=== PATIENT | female | born 1945 | race Hispanic/Latino ===

== ENCOUNTER 2018-10-31 10:34 | Emergency (ER) | payer OTHER ==
[2018-10-31] MEDS ORDERED: MECLIZINE HCL 12.5 MG TAB ONE (11:40)
[2018-10-31] MEDS ORDERED: NA CHLORIDE 0.9% 500 ML ONE (11:40)
[2018-10-31] MEDS ORDERED: ONDANSETRON 4 MG/2 ML VIAL ONE (11:40)
[2018-10-31 11:51] LABS: Absolute Lymphocytes (CBC) 0.9 K/uL (0.7-4.9); Basophils % 0.6 % (0-1.3); Hematocrit 46.8 % (36.0-45.0); Lymphocytes % 9.7 % (15.3-44.8); MPV 12.1 fL (7.6-11.3); RBC Red Blood Cell Count 5.37 M/uL (3.86-4.86)
--- NOTE | 2018-10-31 11:51 | RAD REPORT ---
EXAM DESCRIPTION: CT - Head Brain Wo Cont - 10/31/2018 11:45 am CLINICAL HISTORY: Syncope, fall, head injury COMPARISON: None. TECHNIQUE: Axial 5 mm thick images of the head were obtained without IV contrast. All CT scans are performed using dose optimization technique as appropriate and may include automated exposure control or mA/KV adjustment according to patient size. FINDINGS: No intracranial hemorrhage, mass, edema or shift of mid-line structures. No acute cortical based infarction. No cortical edema or sulcal effacement. Patient has little if any atrophy. Ventric les are normal. Chronic ischemic changes are minimal. Ventricles are normal. Mastoid air cells and visualized portions of the paranasal sinuses are clear. No acute bony findings. Asymmetry is created by head tilt. IMPRESSION: No acute intracranial finding. Chronic ischemic changes minimal with no significant atro phy.
[2018-10-31 11:55] LABS: Protime INR 1.07
[2018-10-31 12:11] LABS: ALT/SGPT 21 U/L (12-78); AST/SGOT 18 U/L (15-37); Alkaline Phosphatase 100 U/L (45-117); BUN Blood Urea Nitrogen 21 mg/dL (7-18); Bicarbonate 30 mmol/L (21-32); Bilirubin Direct 0.2 mg/dL (0-0.2); Bilirubin Total 0.7 mg/dL (0.2-1.0); Glucose Level 118 mg/dL (74-106); Magnesium 2.1 mg/dL (1.8-2.4); NT PRO-BNP 498 pg/mL (<125); Potassium 4.5 mmol/L (3.5-5.1); Protein, Total 8.3 g/dL (6.4-8.2); Sodium Level 139 mmol/L (136-145); Troponin (Emerg Dept Use Only) < 0.02 ng/mL (0.0-0.045)
--- NOTE | 2018-10-31 13:03 | RAD REPORT ---
EXAM DESCRIPTION: RAD - Chest Single View - 10/31/2018 11:52 am CLINICAL HISTORY: Cough, shortness of breath COMPARISON: None. TECHNIQUE: AP portable chest image was obtained 1148 hours . FINDINGS: Lungs are clear. Heart and vasculature are normal. No measurable pleural effusion and no p neumothorax. No acute bony abnormality seen. No acute aortic findings suspected. IMPRESSION: No acute cardiopulmonary process.
--- NOTE | 2018-10-31 13:03 | RAD REPORT ---
EXAM DESCRIPTION: US - CP - 10/31/2018 12:04 pm CLINICAL HISTORY: Dizziness, syncope COMPARISON: None. TECHNIQUE: Real-time sonographic evaluation of both carotid systems was performed. Stover scale and Do ppler interrogation were performed with waveform tracing bilaterally. FINDINGS: Normal high resistance waveforms are noted in both external carotid arteries. The common c arotid arteries and internal carotid arteries show normal low resistance waveforms. Mild right bulb plaquing changes are present without significant luminal narrowing. Peak systolic and end diastolic velocity values and the ICA/CCA ratios are in the non-hemodynamically significant rang e. Antegrade flow seen in both vertebral arteries. Velocity values and ratios were recorded and are retained in the patient's imaging records. IMPRESSION: No significant atherosclerotic changes noted. No evidence of a hemodynamically significant stenosis.
--- NOTE | 2018-10-31 13:11 | ER ---
Nurse's Notes [facility] Name: Elinor Bae Age: 73 yrs Sex: Female : 1945 Arrival Date: 10/31/2018 Time: 10:35 Bed 5 Private MD: Chuy Gusman Diagnosis: Dizziness and giddiness;Vertiginous syndromes in diseases classified elsewhere, unspecified ear;Type 2 diabetes mellitus;Urinary tract infection, site not specified;Unspecified kidney failure-insufficency Presentation: 10/31 11:12 Presenting complaint: Patient states: this morning was watering plants and had a dizzy iw spell that lasted approx 1 minute, it made her fall to the ground, fell on bottom, denies injury, states dizziness has almost completely resolved now, denies headache, denies chest pain or SOB, denies n/v/d, denies weakness in extremities. Transition of care: patient was not received from another setting of care. Onset of symptoms was October 31, 2018. Risk Assessment: Do you want to hurt yourself or someone else? Patient reports no desire to harm self or others. Initial Sepsis Screen: Does the patient meet any 2 criteria? No. Patient's initial sepsis screen is negative. Does the patient have a suspected source of infection? No. Patient's initial sepsis screen is negative. Care prior to arrival: None. 11:12 Method Of Arrival: Ambulatory iw 11:12 Acuity: JOSE ROBERTO 3 iw Historical: - Allergies: 11:17 No Known Allergies; iw - Home Meds: 11:17 Vitamin D3 oral oral daily [Active]; Atenolol Oral [Active]; losartan oral oral iw [Active]; Glimepiride Oral [Active]; gabapentin oral oral [Active]; - PMHx: 11:17 Hypertension; neuropathy; Diabetes - NIDDM; Lupus; iw - PSHx: 11:17 ; iw - Immunization history:: Adult Immunizations up to date. - Social history:: Smoking status: Patient/guardian denies using tobacco. - Ebola Screening: : Patient negative for fever greater than or equal to 101.5 degrees Fahrenheit, and additional compatible Ebola Virus Disease symptoms Patient denies exposure to infectious person Patient denies travel to an Ebola-affected area in the 21 days before illness onset No symptoms or risks identified at this time. - Family history:: not pertinent. Screenin:20 Abuse screen: Denies threats or abuse. Nutritional screening: No deficits noted. aa5 Tuberculosis screening: No symptoms or risk factors identified. Fall Risk None identified. Assessment: 11:20 General: Appears comfortable, Behavior is calm, cooperative. Pain: Denies pain. Neuro: aa5 Level of Consciousness is awake, alert, obeys commands, Oriented to person, place, time, situation, Mathematical Engineering Technician are equal bilaterally Moves all extremities. Gait is steady, Speech is normal, Facial symmetry appears normal, Pupils are PERRLA, Reports dizziness has resolved. . Cardiovascular: Heart tones S1 S2 present Rhythm is regular. Respiratory: Airway is patent Respiratory effort is even, unlabored, Respiratory pattern is regular, symmetrical, Breath sounds are clear bilaterally. GI: Abdomen is round Bowel sounds present X 4 quads. Abd is soft and non tender X 4 quads. Reports nausea, Patient currently denies diarrhea, vomiting. : No signs and/or symptoms were reported regarding the genitourinary system. EENT: No signs and/or symptoms were reported regarding the EENT system. Derm: Skin is pink, warm \T\ dry. Musculoskeletal: Range of motion: intact in all extremities. 11:40 Reassessment: Pt at CT, will administer medications when pt returns. . aa5 12:03 Reassessment: Patient is alert, oriented x 3, equal unlabored respirations, skin aa5 warm/dry/pink. Pt back from CT . 13:00 Reassessment: Patient is alert, oriented x 3, equal unlabored respirations, skin aa5 warm/dry/pink. Patient denies pain at this time. Denies dizziness. Pt assisted to restroom with steady gait noted, urine specimen collected. . 14:11 Reassessment: Patient is alert, oriented x 3, equal unlabored respirations, skin aa5 warm/dry/pink. Patient denies pain at this time. Vital Signs: 11:17 BP 141 / 89; Pulse 67; Resp 16 S; Temp 97.9(TE); Pulse Ox 99% on R/A; Weight 88 kg; iw Height 5 ft. 3 in. (160.02 cm); Pain 0/10; 13:00 BP 139 / 84; Pulse 62; Resp 18 S; Pulse Ox 100% on R/A; Pain 0/10; aa5 14:00 BP 106 / 67 Supine; Pulse 72; aa5 14:02 BP 123 / 56 Sitting; Pulse 73; aa5 14:04 BP 115 / 45 Standing; Pulse 61; Resp 18 S; Temp 98.0(TE); Pulse Ox 98% on R/A; Pain aa5 0/10; 11:17 Body Mass Index 34.37 (88.00 kg, 160.02 cm) iw 14:04 Dr. Canchola notified of orthostatics. aa5 NIH Stroke Scale Scores: 11:29 NIHSS Score: 0 [facility] ED Course: 10:35 Patient arrived in ED. ag5 10:35 Chuy Gusman MD is Private Physician. ag5 10:58 Jose Manuel Canchola MD is Attending Physician. zaid 11:02 Carmen Contreras, RN is Primary Nurse. aa5 11:14 Triage completed. iw 11:17 Arm band placed on. iw 11:20 Patient has correct armband on for positive identification. Bed in low position. Call aa5 light in reach. Side rails up X2. Adult w/ patient. 11:20 monitor tech on. Pulse ox on. NIBP on. aa5 11:35 Initial lab(s) drawn, by la, sent to lab. Inserted saline lock: 20 gauge in right aa5 antecubital area, using aseptic technique. Blood collected. 11:45 CT completed. Patient tolerated procedure well. Patient moved back from CT. Patient bq moved to radiology. 11:46 CT Head Brain wo Cont In Process Unspecified. EDMS 11:51 X-ray completed. Patient tolerated procedure well. Patient moved back from radiology. mh1 11:55 XRAY Chest (1 view) In Process Unspecified. EDMS 12:03 Ultrasound completed. Patient tolerated well. sg3 12:04 US Carotid Artery Bilateral In Process Unspecified. EDMS 13:10 Chuy Gusman MD is Referral Physician. zaid 14:11 No provider procedures requiring assistance completed. IV discontinued, intact, aa5 bleeding controlled, No redness/swelling at site. Pressure dressing applied. Administered Medications: 12:04 Drug: NS 0.9% 500 ml Route: IV; Rate: bolus; Site: right antecubital; aa5 12:40 Follow up: IV Status: Completed infusion; IV Intake: 500ml aa5 12:04 Drug: Meclizine 50 mg Route: PO; aa5 13:20 Follow up: Response: No adverse reaction aa5 12:04 Drug: Zofran 4 mg Route: IVP; Site: right antecubital; aa5 12:10 Follow up: Response: No adverse reaction aa5 13:19 Drug: Aspirin Chewable Tablet 162 mg Route: PO; aa5 14:09 Follow up: Response: No adverse reaction aa5 13:20 Drug: Rocephin 1 grams Route: IV; Rate: per protocol; Site: right antecubital; aa5 13:30 Follow up: Response: No adverse reaction aa5 Intake: 12:40 IV: 500ml; Total: 500ml. aa5 Outcome: 13:10 Discharge ordered by . zaid 14:11 Discharged to home ambulatory, with family. aa5 14:11 Condition: stable 14:11 Discharge instructions given to patient, Instructed on discharge instructions, follow up and referral plans. medication usage, Demonstrated understanding of instructions, follow-up care, medications, Prescriptions given X 3. 14:13 Patient left the ED. aa5 NIH Stroke Scale - NIH Stroke Score Date: 10/31/2018 Time: 11:29 Total Score = 0 1a. Level of Consciousness (LOC) - 0(Alert) 1b. Level of Consciousness (LOC) (Year \T\ Age) - 0(Both) 1c. LOC Commands (Open \T\ Closes Eyes/Central Office Operator Supervisor) - 0(Both) 2. Best Gaze (Lateral Gaze Paresis) - 0(Normal) 3. Visual Field Loss - 0(No visual loss) 4. Facial Palsy - 0(Normal) 5a. Left Arm: Motor (10-second hold) - 0(No drift) 5b. Right Arm: Motor (10-second hold) - 0(No drift) 6a. Left Leg: Motor (5-second hold - always test supine) - 0(No drift) 6b. Right Leg: Motor (5-second hold - always test supine) - 0(No drift) 7. Limb Ataxia (finger/nose \T\ heel/aguirre - test with eyes open) - 0(Absent) 8. Sensory Loss (pinprick arms/legs/face) - 0(Normal) 9. Best Language: Aphasia (description/naming/reading) - 0(No aphasia) 10. Dysarthria (speech clarity - read or repeat words) - 0(Normal) 11. Extinction and Inattention (visual/tactile/auditory/spatial/personal) - 0(No abnormality) Initials: zaid Signatures: Dispatcher [employer] Jose Manuel Asif MD MD cha Harvey, Martha 1 Aida Rodriguez Irene RN RN iw Carmen Contreras RN RN aa5 Fina Negrete 3 Marisol Newell 5
--- NOTE | 2018-10-31 13:11 | EDPHYS ---
Physician Documentation [facility] Name: Elinor Bae Age: 73 yrs Sex: Female : 1945 Arrival Date: 10/31/2018 Time: 10:35 Bed 5 Private MD: Chuy Gusman ED Physician Jose Manuel Canchola HPI: 10/31 11:29 This 73 yrs old Female presents to ER via Ambulatory with complaints of zaid Dizziness. 11:29 The patient presents with dizziness, generalized weakness, lightheadedness, feeling off zaid balance. Onset: The symptoms/episode began/occurred just prior to arrival. Context: occurred at home, outdoors, occurred while the patient was working. Modifying factors: The symptoms are alleviated by nothing. Associated signs and symptoms: The patient has no apparent associated signs or symptoms. Severity of symptoms: At their worst the symptoms were mild moderate in the emergency department the symptoms have improved mildly. Patient's baseline: Neuro: alert and fully oriented. The patient has not experienced similar symptoms in the past. Historical: - Allergies: 11:17 No Known Allergies; iw - Home Meds: 11:17 Vitamin D3 oral oral daily [Active]; Atenolol Oral [Active]; losartan oral oral iw [Active]; Glimepiride Oral [Active]; gabapentin oral oral [Active]; - PMHx: 11:17 Hypertension; neuropathy; Diabetes - NIDDM; Lupus; iw - PSHx: 11:17 ; iw - Immunization history:: Adult Immunizations up to date. - Social history:: Smoking status: Patient/guardian denies using tobacco. - Ebola Screening: : Patient negative for fever greater than or equal to 101.5 degrees Fahrenheit, and additional compatible Ebola Virus Disease symptoms Patient denies exposure to infectious person Patient denies travel to an Ebola-affected area in the 21 days before illness onset No symptoms or risks identified at this time. - Family history:: not pertinent. ROS: 11:29 Constitutional: Negative for fever, chills, and weight loss, Eyes: Negative for injury, zaid pain, redness, and discharge, ENT: Negative for injury, pain, and discharge, Neck: Negative for injury, pain, and swelling, Cardiovascular: Negative for chest pain, palpitations, and edema, Respiratory: Negative for shortness of breath, cough, wheezing, and pleuritic chest pain, Abdomen/GI: Negative for abdominal pain, nausea, vomiting, diarrhea, and constipation, Back: Negative for injury and pain, : Negative for injury, bleeding, discharge, and swelling, MS/Extremity: Negative for injury and deformity, Skin: Negative for injury, rash, and discoloration, Allergy/Immunology: Negative for hives, rash, and allergies, Endocrine: Negative for neck swelling, polydipsia, polyuria, polyphagia, and marked weight changes, Hematologic/Lymphatic: Negative for swollen nodes, abnormal bleeding, and unusual bruising. 11:29 Neuro: Positive for dizziness. Exam: 11:29 Constitutional: This is a well developed, well nourished patient who is awake, alert, zaid and in no acute distress. Head/Face: Normocephalic, atraumatic. Eyes: Pupils equal round and reactive to light, extra-ocular motions intact. Lids and lashes normal. Conjunctiva and sclera are non-icteric and not injected. Cornea within normal limits. Periorbital areas with no swelling, redness, or edema. ENT: Nares patent. No nasal discharge, no septal abnormalities noted. Tympanic membranes are normal and external auditory canals are clear. Oropharynx with no redness, swelling, or masses, exudates, or evidence of obstruction, uvula midline. Mucous membranes moist. Neck: Trachea midline, no thyromegaly or masses palpated, and no cervical lymphadenopathy. Supple, full range of motion without nuchal rigidity, or vertebral point tenderness. No Meningismus. Chest/axilla: Normal chest wall appearance and motion. Nontender with no deformity. No lesions are appreciated. Cardiovascular: Regular rate and rhythm with a normal S1 and S2. No gallops, murmurs, or rubs. Normal PMI, no JVD. No pulse deficits. Respiratory: Lungs have equal breath sounds bilaterally, clear to auscultation and percussion. No rales, rhonchi or wheezes noted. No increased work of breathing, no retractions or nasal flaring. Abdomen/GI: Soft, non-tender, with normal bowel sounds. No distension or tympany. No guarding or rebound. No evidence of tenderness throughout. Back: No spinal tenderness. No costovertebral tenderness. Full range of motion. Female : Normal external genitalia. Skin: Warm, dry with normal turgor. Normal color with no rashes, no lesions, and no evidence of cellulitis. MS/ Extremity: Pulses equal, no cyanosis. Neurovascular intact. Full, normal range of motion. Neuro: Awake and alert, GCS 15, oriented to person, place, time, and situation. Cranial nerves II-XII grossly intact. Motor strength 5/5 in all extremities. Sensory grossly intact. Cerebellar exam normal. Normal gait. Psych: Awake, alert, with orientation to person, place and time. Behavior, mood, and affect are within normal limits. 12:32 Musculoskeletal/extremity: DVT Exam: No signs of deep vein thrombosis. no pain, no zaid swelling, no tenderness, negative Homans' sign noted on exam, no appreciated bluish discoloration, no erythema, no increased warmth. Vital Signs: 11:17 BP 141 / 89; Pulse 67; Resp 16 S; Temp 97.9(TE); Pulse Ox 99% on R/A; Weight 88 kg; iw Height 5 ft. 3 in. (160.02 cm); Pain 0/10; 13:00 BP 139 / 84; Pulse 62; Resp 18 S; Pulse Ox 100% on R/A; Pain 0/10; aa5 14:00 BP 106 / 67 Supine; Pulse 72; aa5 14:02 BP 123 / 56 Sitting; Pulse 73; aa5 14:04 BP 115 / 45 Standing; Pulse 61; Resp 18 S; Temp 98.0(TE); Pulse Ox 98% on R/A; Pain aa5 0/10; 11:17 Body Mass Index 34.37 (88.00 kg, 160.02 cm) iw 14:04 Dr. Canchola notified of orthostatics. aa5 NIH Stroke Scale Scores: 11:29 NIHSS Score: 0 zaid MDM: 10:58 Patient medically screened. [facility] 12:32 Data reviewed: vital signs, nurses notes, lab test result(s), EKG, radiologic studies, [facility] CT scan, plain films. 10/31 11:28 Order name: Basic Metabolic Panel [facility] 10/31 11:28 Order name: CBC with Diff [facility] 10/31 11:28 Order name: LFT's; Complete Time: 12:31 [facility] 10/31 11:28 Order name: Magnesium; Complete Time: 12:31 [facility] 10/31 11:28 Order name: NT PRO-BNP; Complete Time: 12:31 [facility] 10/31 11:28 Order name: PT-INR; Complete Time: 12:31 [facility] 10/31 11:28 Order name: Troponin (emerg Dept Use Only); Complete Time: 12:31 [facility] 10/31 11:28 Order name: XRAY Chest (1 view); Complete Time: 13:07 [facility] 10/31 11:28 Order name: CT Head Brain wo Cont; Complete Time: 12:05 [facility] 10/31 11:28 Order name: US Carotid Artery Bilateral; Complete Time: 13:07 [facility] 10/31 11:28 Order name: Urine Culture [facility] 10/31 11:32 Order name: Basic Metabolic Panel; Complete Time: 12:31 EDMS 10/31 11:32 Order name: CBC with Automated Diff; Complete Time: 12:05 EDND 10/31 13:08 Order name: Urine Dipstick--Ancillary (enter results); Complete Time: 13:51 em1 10/31 11:28 Order name: Cardiac monitoring; Complete Time: 11:39 [facility] 10/31 11:28 Order name: EKG - Nurse/Tech; Complete Time: 12:04 [facility] 10/31 11:28 Order name: IV Saline Lock; Complete Time: 11:39 [facility] 10/31 11:28 Order name: Labs collected and sent; Complete Time: 11:39 [facility] 10/31 11:28 Order name: O2 Per Protocol; Complete Time: 11:39 [facility] 10/31 11:28 Order name: O2 Sat Monitoring; Complete Time: 11:39 [facility] 10/31 11:28 Order name: Urine Dipstick-Ancillary (obtain specimen); Complete Time: 13:08 [facility] 10/31 13:55 Order name: Orthostatics; Complete Time: 14:09 [facility] Administered Medications: 12:04 Drug: NS 0.9% 500 ml Route: IV; Rate: bolus; Site: right antecubital; aa5 12:40 Follow up: IV Status: Completed infusion; IV Intake: 500ml aa5 12:04 Drug: Meclizine 50 mg Route: PO; aa5 13:20 Follow up: Response: No adverse reaction aa5 12:04 Drug: Zofran 4 mg Route: IVP; Site: right antecubital; aa5 12:10 Follow up: Response: No adverse reaction aa5 13:19 Drug: Aspirin Chewable Tablet 162 mg Route: PO; aa5 14:09 Follow up: Response: No adverse reaction aa5 13:20 Drug: Rocephin 1 grams Route: IV; Rate: per protocol; Site: right antecubital; aa5 13:30 Follow up: Response: No adverse reaction aa5 Disposition: 10/31/18 13:10 Discharged to Home. Impression: Dizziness and giddiness, Vertiginous syndromes in diseases classified elsewhere, unspecified ear, Type 2 diabetes mellitus, Urinary tract infection, site not specified, Unspecified kidney failure - insufficency. - Condition is Stable. - Discharge Instructions: Benign Positional Vertigo, Type 2 Diabetes Mellitus, Diagnosis, Adult, Dizziness, Urinary Tract Infection, Adult, Vertigo, Urinary Tract Infection, Adult, [id number], Aspirin and Your Heart, Chronic Kidney Disease, Adult, Nhol-mr-Usdu, Type 2 Diabetes Mellitus, Diagnosis, Adult, Vsfl-op-Iryu, Dizziness, Tray-dw-Ccga. - Prescriptions for Meclizine 25 mg Oral Tablet - take 1 tablet by ORAL route every 8 hours As needed; 30 tablet. Zofran 4 mg Oral Tablet - take 1 tablet by ORAL route every 12 hours As needed; 14 tablet. Bactrim DS 800- 160 mg Oral Tablet - take 1 tablet by ORAL route every 12 hours for 5 days; 10 tablet. - Medication Reconciliation Form, Thank You Letter, Antibiotic Education, Prescription Opioid Use form. - Follow up: Chuy Gusman; When: 2 - 3 days; Reason: Recheck today's complaints, Continuance of care, Re-evaluation by your physician. - Problem is new. - Symptoms have improved. NIH Stroke Scale - NIH Stroke Score Date: 10/31/2018 Time: 11:29 Total Score = 0 1a. Level of Consciousness (LOC) - 0(Alert) 1b. Level of Consciousness (LOC) (Year \T\ Age) - 0(Both) 1c. LOC Commands (Open \T\ Closes Eyes/Lens Shaper Grinder) - 0(Both) 2. Best Gaze (Lateral Gaze Paresis) - 0(Normal) 3. Visual Field Loss - 0(No visual loss) 4. Facial Palsy - 0(Normal) 5a. Left Arm: Motor (10-second hold) - 0(No drift) 5b. Right Arm: Motor (10-second hold) - 0(No drift) 6a. Left Leg: Motor (5-second hold - always test supine) - 0(No drift) 6b. Right Leg: Motor (5-second hold - always test supine) - 0(No drift) 7. Limb Ataxia (finger/nose \T\ heel/aguirre - test with eyes open) - 0(Absent) 8. Sensory Loss (pinprick arms/legs/face) - 0(Normal) 9. Best Language: Aphasia (description/naming/reading) - 0(No aphasia) 10. Dysarthria (speech clarity - read or repeat words) - 0(Normal) 11. Extinction and Inattention (visual/tactile/auditory/spatial/personal) - 0(No abnormality) Initials: [facility] Signatures: Dispatcher [employer] EDJose Manuel Allen MD MD cha Williams, Irene RN Carmen Ulloa RN RN aa5 Corrections: (The following items were deleted from the chart) 13:53 13:10 10/31/2018 13:10 Discharged to Home. Impression: Dizziness and giddiness; zaid Vertiginous syndromes in diseases classified elsewhere, unspecified ear; Type 2 diabetes mellitus; Urinary tract infection, site not specified. Condition is Stable. Discharge Instructions: Benign Positional Vertigo, Type 2 Diabetes Mellitus, Diagnosis, Adult, Dizziness, Vertigo, Aspirin and Your Heart, Type 2 Diabetes Mellitus, Diagnosis, Adult, [id number], Dizziness, Cpvi-tk-Cane. Prescriptions for Meclizine 25 mg Oral Tablet - take 1 tablet by ORAL route every 8 hours As needed; 30 tablet, Zofran 4 mg Oral Tablet - take 1 tablet by ORAL route every 12 hours As needed; 14 tablet. and Forms are Medication Reconciliation Form, Thank You Letter, Antibiotic Education, Prescription Opioid Use. Follow up: Chuy Gusman; When: 2 - 3 days; Reason: Recheck today's complaints, Continuance of care, Re-evaluation by your physician. Problem is new. Symptoms have improved. [facility] 14:13 13:53 10/31/2018 13:10 Discharged to Home. Impression: Dizziness and giddiness; aa5 Vertiginous syndromes in diseases classified elsewhere, unspecified ear; Type 2 diabetes mellitus; Urinary tract infection, site not specified; Unspecified kidney failure - insufficency. Condition is Stable. Discharge Instructions: Benign Positional Vertigo, Type 2 Diabetes Mellitus, Diagnosis, Adult, Dizziness, Vertigo, Aspirin and Your Heart, Type 2 Diabetes Mellitus, Diagnosis, Adult, Ryre-fz-Tjqt, Dizziness, Acbz-pb-Wbec, Urinary Tract Infection, Adult, Urinary Tract Infection, Adult, Sgbn-is-Yhit. Prescriptions for Meclizine 25 mg Oral Tablet - take 1 tablet by ORAL route every 8 hours As needed; 30 tablet, Zofran 4 mg Oral Tablet - take 1 tablet by ORAL route every 12 hours As needed; 14 tablet, Bactrim DS 800-160 mg Oral Tablet - take 1 tablet by ORAL route every 12 hours for 5 days; 10 tablet. and Forms are Medication Reconciliation Form, Thank You Letter, Antibiotic Education, Prescription Opioid Use. Follow up: Chuy Gusman; When: 2 - 3 days; Reason: Recheck today's complaints, Continuance of care, Re-evaluation by your physician. Problem is new. Symptoms have improved. zaid
[2018-10-31] MEDS ORDERED: ASPIRIN 81 MG CHEWABLE TABLET ONE (13:19)
[2018-10-31] MEDS ORDERED: CEFTRIAXONE/SWI 1gm 1 GM/10 ML SYR ONE (13:19)
[2018-10-31 13:28] LABS: Urine Blood NEGATIVE (NEG); Urine Glucose NEGATIVE (NEG); Urine Protein NEGATIVE (NEG); Urine Specific Gravity 1.015 (1.005-1.030); Urine pH 5.5 (5.0-7.0)
--- NOTE | 2018-11-01 10:41 | EKG ---
Test Date: 2018-10-31 Test Time: 12:11:34 [employer]: JANETTE MEASUREMENT RESULTS: Intervals: Rate: 61 [place]: 136 QRSD: 62 QT: 396 QTc: 398 [place]: P: 41 [place]: 136 QRS: 6 T: 20 INTERPRETIVE STATEMENTS: Normal sinus rhythm Low voltage QRS Septal infarct, age undetermined Abnormal ECG Compared to ECG 10/29/1998 07:18:00 Low QRS voltage now present Sinus tachycardia no longer present Left ventricular hypertrophy no longer present Myocardial infarct finding still present Electronically Signed On 11-01-18 10:40:14 CDT by Kofi Macedo
== END 2018-10-31 14:13 | disposition home or self-care (01) ==
LOC: ER 10:34
DX: N39.0 Urinary tract infection, site not specified (principal); H82.9 Vertiginous syndromes in diseases classified elsewhere, unspecified ear; N28.9 Disorder of kidney and ureter, unspecified; E11.9 Type 2 diabetes mellitus without complications; I10 Essential (primary) hypertension
CPT/HCPCS: 96361; 93005; 87088; 85025; 87086; 80048; 36415; 83735; 85610; 80076; 81003; 84484; 83880; 70450; 71045; 93880; 96375; 96374; 99285; J0696; J2405; 87077; 87186